=== PATIENT | male | born 2000 | race Caucasian/White ===

== ENCOUNTER 2019-05-10 21:02 | Emergency (ER) | payer BC ==
[2019-05-11] MEDS: LIDOCAINE/MYLANTA 40 ML BTL PO (01:26)
[2019-05-11] MEDS: FAMOTIDINE 20 MG TAB PO (01:26)
[2019-05-11] MEDS: ONDANSETRON (ODT) 4 MG TAB ODT (01:26)
== END 2019-05-11 02:16 | disposition home or self-care (01) ==
LOC: FTE 05-11 02:16
DX: K29.70 Gastritis, unspecified, without bleeding (principal); K21.9 Gastro-esophageal reflux disease without esophagitis
CPT/HCPCS: 99283; Z7610